=== PATIENT | female | born 1980 | race Caucasian/White ===

== ENCOUNTER 2018-06-07 06:01 | Emergency (ER) | payer MEDICAID ==
[~2018-06-07] VITALS: Ht 170.2 cm; Wt 75.0 kg
[2018-06-07 06:37] LABS: BILIRUBIN,URINE NEGATIVE (NEGATIVE); GLUCOSE, URINE (UA) NEGATIVE (NEGATIVE); KETONES,URINE TRACE mg/dL (NEGATIVE); LEUKOCYTE ESTERASE ,URINE NEGATIVE (NEGATIVE); NITRATE,URINE NEGATIVE (NEGATIVE); OCCULT BLOOD,URINE TRACE (NEGATIVE); PROTEIN,URINE NEGATIVE (NEGATIVE); UROBILINOGEN,URINE 0.2 mg/dL (<=1.0)
[2018-06-07 06:44] LABS: APPEARANCE,URINE HAZY (CLEAR)
[2018-06-07 07:09] LABS: BACTERIA,URINE Moderate /HPF (None Seen); SQUAMOUS EPITHELIAL CELL,UR Many /LPF (None Seen); WBC,URINE 0-2 /HPF (0-5)
[2018-06-07 07:55] VITALS: BP 113/73
== END 2018-06-07 08:01 | disposition home or self-care (01) ==
LOC: EMS 06:02
DX: J11.1 Influenza due to unidentified influenza virus with other respiratory manifestations (principal); F12.90 Cannabis use, unspecified, uncomplicated; Z87.891 Personal history of nicotine dependence; Z88.5 Allergy status to narcotic agent
CPT/HCPCS: 87086